=== PATIENT | male | born 1960 | race Two or more races ===

== ENCOUNTER → 2019-04-11 | Outpatient (REF) ==
--- NOTE | 2019-04-11 13:33 | REP ---
Clinical: Pain and disability. Technique: AP, lateral, coned-down views of the lumbosacral spine. Findings: Moderate to advanced multilevel degenerative disc osteophyte complexes are appreciated primarily involving the L4, L5 vertebral bodies and associated disc spaces. Findings include osteophytosis, endplate sclerosis, facet arthropathy and possible chronic compression deformity of L4. Alignment and lordosis maintained. Impression: Moderate to advanced multilevel degenerative spondylosis. Possible chronic compression deformity of L4 warrants correlation. Electronically Signed by Jonathon Ortiz MD 04/11/2019 01:24 P
== END ==
LOC: M SMT 12:55
PROVIDERS: ATTEND Internal Medicine
DX: M51.36 Other intervertebral disc degeneration, lumbar region (principal); Z02.71 Encounter for disability determination

== ENCOUNTER 2024-12-19 10:16 | Day surgery (SDC) | payer MEDICARE ==
[~2024-12-19] VITALS: Ht 175.3 cm; Wt 93.1 kg
[2024-12-19] VITALS (7 sets, daily range): BP systolic 95–150; BP diastolic 63–91; TEMP 97.9–98.2; O2SAT 90–96
[~2024-12-19 10:16] MED LIST: ALBU8.5H; ERGO500029; FLUT1BLS5 INH; LEVE750T5 PO; LEXA1TAB2 PO; OMEP-173 PO; dexmedeTOMIDine (4MCG/ML)200MCG/50ML BTL (PRECEDEX) As Ordered ONE
[2024-12-19] MEDS ORDERED: LIDOCAINE 2% 100MG/5ML SDV (FOR ANES.) As Ordered ONE (11:09)
[2024-12-19] MEDS ORDERED: ONDANSETRON 4MG 2ML VIAL As Ordered ONE (11:09)
[2024-12-19] MEDS ORDERED: propofoL 200 MG/20 ML VIAL As Ordered ONE (11:09)
[2024-12-19] MEDS ORDERED: ROCURONIUM BROMIDE 50MG/5ML VIAL As Ordered ONE (11:09)
[2024-12-19] MEDS ORDERED: fentaNYL 250 MCG/5 ML INJECTION As Ordered ONE (11:10)
[2024-12-19] MEDS ORDERED: MIDAZOLAM INJ 2MG/2ML VIAL As Ordered ONE (11:10)
[2024-12-19] MEDS ORDERED: LORA1TAB23 PO (11:17)
[2024-12-19] MEDS ORDERED: ECOT81TA5 PO (11:17)
[2024-12-19] MEDS: HEPARIN SOD 5000UNITS/ML 1ML VIAL/SYRINGE SQ ONE (12:10)
[2024-12-19] MEDS: ceFAZolin SOD 2 GM IV ONCE IV ONE (12:13)
[2024-12-19] MEDS ORDERED: ACETAMINOPHEN 1000MG/100ML IV BAG As Ordered ONE (12:24)
[2024-12-19] MEDS ORDERED: PHENYLephrine 500MCG 5ML (100MCG/ML) SYRINGE As Ordered ONE (12:26)
[2024-12-19] MEDS ORDERED: ALBUTEROL 6.7GM INHALER **FOR ANES. CART/OMNICELL ONLY As Ordered ONE (13:08)
[2024-12-19] MEDS ORDERED: HYDROmorphone HCL 2MG/ML 1ML VIAL As Ordered ONE (13:56)
[2024-12-19] MEDS: LIDOCAINE 1% SDV 30ML VIAL As Ordered ONE (15:14)
[2024-12-19] MEDS ORDERED: GLYCOPYRROLATE INJ 0.2 MG/ML 2 ML VIAL As Ordered ONE (15:17)
[2024-12-19] MEDS ORDERED: ONDANSETRON 4MG 2ML VIAL IV PRN ×2 (15:50)
[2024-12-19] MEDS ORDERED: MORPHINE 2 MG/ML 1ML VIAL IV PRN (15:50)
[2024-12-19] MEDS ORDERED: fentaNYL 100 MCG/2 ML INJECTION IV PRN (15:50)
[2024-12-19] MEDS ORDERED: ACETAMINOPHEN 325 MG TAB PO PRN (15:50)
[2024-12-19] MEDS ORDERED: oxyCODONE 5MG TAB PO PRN (15:50)
[2024-12-19] MEDS ORDERED: PERCOCET 5MG/325MG TAB PO PRN (15:50)
[2024-12-19] MEDS ORDERED: ALBUTEROL 90 MCG/ACT 8GM HFA INHALER INH PRN (15:50)
[2024-12-19 16:22] LABS: HEMATOCRIT 45.6 % (42.0-52.0); HEMOGLOBIN 15.1 g/dl (13.5-17.5); MEAN CORPUSCULAR HEMOGLOBIN 31.9 pg (27.0-33.0); MEAN CORPUSCULAR HGB CONC 33.1 g/dl (32.0-36.5); MEAN CORPUSCULAR VOLUME 96.4 fl (80.0-96.0); PLATELET COUNT, AUTOMATED 178 10^3/uL (150-450); RED BLOOD COUNT 4.73 10^6/uL (4.30-6.10); WHITE BLOOD COUNT 11.9 10^3/uL (4.0-10.0)
[2024-12-19 16:49] LABS: BLOOD UREA NITROGEN 13 MG/DL (9-23); CALCIUM LEVEL 8.3 MG/DL (8.3-10.6); CARBON DIOXIDE LEVEL 26 MMOL/L (20-31); CHLORIDE LEVEL 109 MMOL/L (98-107); CREATININE FOR GFR 0.92 MG/DL (0.70-1.30); GLOMERULAR FILTRATION RATE > 90.0 (>49); GLUCOSE, FASTING 132 MG/DL (74-106); POTASSIUM SERUM 4.9 MMOL/L (3.5-5.1); SODIUM LEVEL 140 MMOL/L (136-145)
[2024-12-19] MEDS: PERCOCET 5MG/325MG TAB PO PRN (16:50)
[2024-12-19] MEDS: LR 1,000 ML IV SCH (16:51)
[2024-12-19] MEDS: NS (Normal Saline) 0.9% 500 ML IV SCH (16:51)
[2024-12-19] MEDS ORDERED: HOME MED LIST COMPLETE! XX SCH (20:15)
[2024-12-19] MEDS: DOCUSATE SODIUM 100MG CAPSULE PO SCH (21:06)
[2024-12-19] MEDS: ceFAZolin SOD 1 GM in DEXTROSE 5% (D5W) ADV/MINI-BAG 50 ML IV SCH (21:08)
[2024-12-19] MEDS: HEPARIN SOD 5000UNITS/ML 1ML VIAL/SYRINGE SC SCH (21:09)
[2024-12-20 03:59] VITALS: BP 118/63; TEMP 99; O2SAT 94
[2024-12-20 05:54] VITALS: O2SAT 95
[2024-12-20] MEDS: OMEPRAZOLE 20MG CAP PO SCH (06:07)
[2024-12-20 06:44] LABS: HEMATOCRIT 46.4 % (42.0-52.0); HEMOGLOBIN 15.4 g/dl (13.5-17.5); MEAN CORPUSCULAR HEMOGLOBIN 31.9 pg (27.0-33.0); MEAN CORPUSCULAR HGB CONC 33.2 g/dl (32.0-36.5); MEAN CORPUSCULAR VOLUME 96.1 fl (80.0-96.0); PLATELET COUNT, AUTOMATED 180 10^3/uL (150-450); RED BLOOD COUNT 4.83 10^6/uL (4.30-6.10); WHITE BLOOD COUNT 12.2 10^3/uL (4.0-10.0)
[2024-12-20 07:02] LABS: BLOOD UREA NITROGEN 13 MG/DL (9-23); CALCIUM LEVEL 8.3 MG/DL (8.3-10.6); CARBON DIOXIDE LEVEL 25 MMOL/L (20-31); CHLORIDE LEVEL 106 MMOL/L (98-107); CREATININE FOR GFR 0.78 MG/DL (0.70-1.30); GLOMERULAR FILTRATION RATE > 90.0 (>49); GLUCOSE, FASTING 127 MG/DL (74-106); POTASSIUM SERUM 4.6 MMOL/L (3.5-5.1); SODIUM LEVEL 139 MMOL/L (136-145)
[2024-12-20] MEDS: ADVAIR HFA 115/21MCG INHALER INH SCH (07:46)
[2024-12-20 08:00] VITALS: BP 118/66; TEMP 98.8; O2SAT 93
[2024-12-20] MEDS: ESCITALOPRAM OXALATE 10 MG TAB PO SCH (08:35)
[2024-12-20] MEDS ORDERED: CIPR-249 PO (09:14)
[2024-12-20] MEDS ORDERED: PERCOCET PO (09:14)
[2024-12-20] MEDS ORDERED: COLA100C5 PO (09:14)
[2024-12-20 12:00] VITALS: BP 119/65; TEMP 98.8; O2SAT 95
[2024-12-21] MEDS ORDERED: ENTER DRUG NAME HERE (PATIENT'S OWN MED) INH SCH (09:00)
== END 2024-12-20 14:38 | disposition home or self-care (01) ==
LOC: M SDC 10:16 → M MSPAV 16:43 → M SDC 12-20 14:38
PROVIDERS: ATTEND Urology
DX: C61 Malignant neoplasm of prostate (principal); J44.9 Chronic obstructive pulmonary disease, unspecified; K21.9 Gastro-esophageal reflux disease without esophagitis; F17.200 Nicotine dependence, unspecified, uncomplicated; Z79.51 Long term (current) use of inhaled steroids; Z79.82 Long term (current) use of aspirin; Z79.899 Other long term (current) drug therapy; G40.909 Epilepsy, unspecified, not intractable, without status epilepticus
CPT/HCPCS: 36415; 55866; 80048; 85027; 86850; 86900; 86901; 88309; 96365; 96366; 96372; J0131; J0665; J0690; J1100; J1171; J1596; J2250; J2371; J2405; J3010; S2900

== ENCOUNTER → 2024-12-26 | Outpatient (REF) | payer MEDICARE, MEDICAID ==
[~2024-12-26] MED LIST changes: +CIPR-249 PO; +COLA100C5 PO; +ECOT81TA5 PO; +LORA1TAB23 PO; +PERCOCET PO; -dexmedeTOMIDine (4MCG/ML)200MCG/50ML BTL (PRECEDEX) As Ordered ONE
[2024-12-26 13:55] LABS: APPEARANCE, URINE HAZY (CLEAR); BACTERIA, URINE AUTO NEGATIVE (NEGATIVE); BILIRUBIN, URINE AUTO NEGATIVE (NEGATIVE); BLOOD, URINE BLOOD 3+ (NEGATIVE); COLOR, URINE YELLOW (YELLOW); GLUCOSE, URINE (UA) AUTO NEGATIVE (NEGATIVE); KETONE, URINE AUTO NEGATIVE (NEGATIVE); LEUKOCYTE ESTERASE, URINE AUTO 2+ (NEGATIVE); MUCUS, URINE SMALL (NEGATIVE); NITRITE, URINE AUTO NEGATIVE (NEGATIVE); PROTEIN, URINE AUTO 2+ mg/dL (NEGATIVE); RBC, URINE AUTO TNTC /HPF (0-3); SPECIFIC GRAVITY URINE AUTO 1.015 (1.002-1.035); SQUAMOUS EPITHELIAL CELL UR AU 0 /HPF (0-6); WBC, URINE AUTO 51 /HPF (0-3)
== END ==
LOC: M SMT 13:00
PROVIDERS: ATTEND Nurse Practitioner Family
DX: N45.3 Epididymo-orchitis (principal)